=== PATIENT | male | born 1995 | race Caucasian/White ===

== ENCOUNTER 2025-06-19 07:00 | Day surgery (SDC) | payer OTHER ==
[2025-06-19] MEDS ORDERED: DIPHENHYDRAMINE HCL 50 MG/ML VIAL 1ML IV ONE (08:15)
[2025-06-19] MEDS ORDERED: fentaNYL CITRATE 50 MCG/ML AMPUL IV PUSH ONE (08:15)
[2025-06-19] MEDS ORDERED: MIDAZOLAM HCL 2 MG/2 ML VIAL IV ONE (08:15)
== END 2025-06-19 09:45 | disposition home or self-care (01) ==
LOC: AMB-ENDOS 07:00
PROVIDERS: ATTEND Colon & Rectal Surgery
DX: K62.5 Hemorrhage of anus and rectum (principal); K64.4 Residual hemorrhoidal skin tags